=== PATIENT | male | born 1990 | race African-American/Black ===

== ENCOUNTER 2017-01-21 15:17 | Emergency (ER) | payer SELFPAY ==
[~2017-01-21] VITALS: Ht 180.3 cm; Wt 74.8 kg
[2017-01-21] MEDS ORDERED: ADDERAL20 MG ORAL (16:06)
[2017-01-21] MEDS ORDERED: QUETIAPINE FUM100 MG ORAL (16:06)
[2017-01-21] MEDS ORDERED: ZYPREXA10 MG ORAL (16:07)
--- NOTE | 2017-01-21 16:07 | Emergency Room Report ---
History of Present Illness General Chief Complaint: To Be Triaged Source: Patient Present Illness HPI 26 y/o male c/o med refill. States that he has appt with PCP [facility] on 01/27/17 and needs medication to last him to his appt. States he takes 20mg Adderral QD for ADHD, 10mg Zyprexa QHS for KAREY and then 100mg QD Seroquil for Bipolar. States he takes medication with good compliance w/o AE and with control of sxs. Denies SI, HI, AH or VH. Allergies: Coded Allergies: No Known Allergies (Unverified , 01/21/17) Patient History Past Medical History: see triage record Past Surgical History: none Pertinent Family History: none Reviewed Nursing Documentation: PMH: Agreed, PSxH: Agreed Review of Systems All Other Systems: negative except mentioned in HPI Physical Exam Sp02 EP Interpretation: reviewed, normal General Appearance: no apparent distress, alert, GCS 15, non-toxic Head: normocephalic, atraumatic Eyes: bilateral eye normal inspection ENT: no angioedema, normal voice Neck: full range of motion, supple/symm/no masses Respiratory: chest non-tender, lungs clear, normal breath sounds, speaking full sentences Musculoskeletal: gait/station normal Neurologic: alert, oriented x3, responsive, motor strength/tone normal, sensory intact, speech normal Psychiatric: judgement/insight normal, memory normal, mood/affect normal, no suicidal/homicidal ideation Skin: normal color, no rash, warm/dry, well hydrated Medical Decision Making PA Attestation Dr. Foss is my supervising physician with whom patient management has been discussed with. Diagnostic Impression: Primary Impression: Medication refill Additional Impressions: ADHD (attention deficit hyperactivity disorder) Qualified Codes: F90.1 - Attention-deficit hyperactivity disorder, predominantly hyperactive type Bipolar 1 disorder, mixed KAREY (generalized anxiety disorder) ER Course Pt. presents to the ED c/o medication refill. Ddx considered but are not limited to withdrawel, drug abuse, bipolar, schitzophrenia, depression, ADHD, KAREY Vital signs: are WNL, pt. is afebrile H&PE are most consistent with med refill for multiple psych conditions ORDERS: none required at this time, the diagnosis is clinical ED INTERVENTIONS: none required at this time. DISCHARGE: At this time pt. is stable for d/c to home. I checked cures report which shows no aberrant behaviors with last Rx for Adderall being December 02 2016. Advised I would give refill amount to next appointment with PCP. Will provide printed patient care instructions, and any necessary prescriptions. Care plan and follow up instructions have been discussed with the patient prior to discharge. Disposition: HOME, SELF-CARE Condition: Stable Scripts Olanzapine* (ZYPREXA*) 10 Mg Tablet 10 MG ORAL DAILY, #7 TAB 0 Refills Prov: YULIYATAMEEM P.A. 01/21/17 Dextroamphetamine/Amphetamine (Adderall 20 mg Tablet) 20 Mg Tablet 20 MG ORAL DAILY, #7 TAB Prov: SABRY,TAMEEM P.A. 01/21/17 Quetiapine Fumarate* (SEROQUEL*) 100 Mg Tablet 100 MG ORAL DAILY, #7 TAB Prov: SABRY,TAMEEM P.A. 01/21/17 YULIYATAMEEM P.A. Jan 21, 2017 16:07
[2017-01-21 16:17] VITALS: BP 123/67
== END 2017-01-21 16:17 | disposition home or self-care (01) ==
LOC: EMR 16:17
DX: F31.9 Bipolar disorder, unspecified (principal); F90.9 Attention-deficit hyperactivity disorder, unspecified type; F41.1 Generalized anxiety disorder; Z76.0 Encounter for issue of repeat prescription
CPT/HCPCS: 99284

== ENCOUNTER 2017-01-29 13:09 | Emergency (ER) | payer OTHER ==
[~2017-01-29] VITALS: Ht 177.8 cm; Wt 74.8 kg
[~2017-01-29 13:09] MED LIST: ADDERAL20 MG ORAL; QUETIAPINE FUM100 MG ORAL; ZYPREXA10 MG ORAL
[2017-01-29 13:52] VITALS: BP 105/67
--- NOTE | 2017-01-29 14:16 | Emergency Room Report ---
History of Present Illness General Chief Complaint: Pain Source: Patient Present Illness HPI 26 YO M hx of depression p/w R ankle pain and medication refill +R ankle pain, on lateral side, associated with mild swelling, oxxurred for the last 2 weeks. denies any recent trauma. can not recall if he twisted it or not. denies any fever or chills. he has still been able to ambulate and bear weight also here for refill for zyprexa and adderral, states he has been looking for a psychiatrist but "it has been a lot of hassle". denies any depressive symptoms at this time, no SI/HI. got a rx filled here at [facility] last week. denies fever chills nvd Allergies: Coded Allergies: No Known Allergies (Unverified , 01/21/17) Patient History Past Medical History: psych hx Past Surgical History: none Pertinent Family History: none Nursing Documentation-[facility] Past Medical History: No History, Except For History Of Psychiatric Problem: Yes - ADHD, BIPOLAR Review of Systems Musculoskeletal: Reports: joint pain All Other Systems: negative except mentioned in HPI Physical Exam Vital Signs Date Time Temp Pulse Resp B/P Pulse Ox O2 Delivery O2 Flow Rate FiO2 01/29/17 13:23 97.9 103 20 105/67 100 Room Air General Appearance: normal inspection, well appearing, no apparent distress, alert, GCS 15, non-toxic Head: normocephalic, atraumatic Eyes: bilateral eye EOMI, bilateral eye PERRL, bilateral eye normal inspection ENT: normal ENT inspection, normal pharynx, normal voice, moist mucus membranes Neck: normal inspection, full range of motion, supple, no bony tend Respiratory: normal inspection, lungs clear, normal breath sounds, no respiratory distress, no retraction, no wheezing, speaking full sentences, chest symmetrical Cardiovascular #1: normal inspection, regular rate, rhythm, no edema, normal capillary refill Gastrointestinal: normal inspection, non tender, soft, non-distended, no guarding Genitourinary: no CVA tenderness Musculoskeletal: normal inspection, back normal, other - mild swelling noted lateral R ankle, no 5th metatarsal tenderness, full ROM, able to ambulate and bear weight without difficulty. effusion has no warmth or overlying redness Neurologic: normal inspection, alert, oriented x3, responsive, motor strength/ tone normal, sensory intact, normal gait, speech normal Medical Decision Making Diagnostic Impression: Primary Impression: Ankle pain, right ER Course 26 yo M with R ankle pain x 2 weeks DDX: ankle sprain / fx ER course: XR reveals no acute fx RAKAN bandage placed on R ankle Continues to be nontoxic and ambulatory in ED Disposition: Pt is to be DC'ed home. Rx for motrin given. Rakan bandage placed on R ankle. Pt instructed to rest, ice, and take NSAIDS for pain. Instructed to follow up with an orthopedic doctor if any worsening/ persistent pain. medication refill: pt instructed to see his PMD/psychiatrist for refills Last Vital Signs Date Time Temp Pulse Resp B/P Pulse Ox O2 Delivery O2 Flow Rate FiO2 01/29/17 13:52 97.9 98 20 105/67 100 Room Air Disposition: HOME, SELF-CARE Condition: Improved Scripts Ibuprofen* (MOTRIN*) 600 Mg Tablet 600 MG ORAL Q8H Y for For Pain, #30 TAB 0 Refills Prov: Adrianne Barrera M.D. 01/29/17 Referrals: NOT CHOSEN XENIA/,REFERRING (PCP) Adrianne Barrera M.D. Jan 29, 2017 14:16
[2017-01-29] MEDS ORDERED: IBUPROFEN600 MG ORAL (14:20)
[2017-01-29 14:31] VITALS: BP 105/67
== END 2017-01-29 14:40 | disposition home or self-care (01) ==
LOC: EMR 13:43
DX: M25.571 Pain in right ankle and joints of right foot (principal); Z76.0 Encounter for issue of repeat prescription; F90.9 Attention-deficit hyperactivity disorder, unspecified type; F31.9 Bipolar disorder, unspecified
CPT/HCPCS: 29540; 99283

== ENCOUNTER 2017-10-30 13:23 | Emergency (ER) | payer SELFPAY ==
[~2017-10-30] VITALS: Ht 180.3 cm; Wt 70.8 kg
[~2017-10-30 13:23] MED LIST changes: +IBUPROFEN600 MG ORAL
[2017-10-30 14:01] VITALS: BP 102/67
[2017-10-30] MEDS ORDERED: ZYPREXA2.5 MG ORAL (14:28)
[2017-10-30 14:29] VITALS: BP 102/67
--- NOTE | 2017-10-30 14:30 | Emergency Room Report ---
History of Present Illness General Chief Complaint: Medication Refill Source: Patient Present Illness HPI 27-year-old male patient presents ER requesting medication refill. Patient requesting refill for Strattera, Zyprexa, lorazepam. patient reports that he takes 2.5 mg of Zyprexa and 10 mg of Zyprexa at separate times during the day. Reports he has tenderness milligrams of Zyprexa but is out of his 2.5 mg of Zyprexa.. Patient reports allergies to stay. Patient reports that his appointment with his new primary care provider on November 05. Patient reports that his prescription was given to him but it was filled out incorrectly and he was unable to fill it. Patient denies symptoms. Patient denies suicidal or homicidal ideation. Patient denies fever, chest pain shortness breath. Allergies: Coded Allergies: SHELLFISH DERIVED (Unverified Allergy, Unknown, 10/30/17) Uncoded Allergies: SHELLFISH (Allergy, Unknown, 10/30/17) Patient History Past Medical History: see triage record Reviewed Nursing Documentation: PMH: Agreed; PSxH: Agreed Nursing Documentation-PMH Past Medical History: No History, Except For History Of Psychiatric Problem: Yes - Anxiety, ADHD Review of Systems All Other Systems: negative except mentioned in HPI Physical Exam Vital Signs Date Time Temp Pulse Resp B/P (MAP) Pulse Ox O2 Delivery O2 Flow Rate FiO2 10/30/17 14:01 98.2 99 16 102/67 95 Room Air 98.2 Sp02 EP Interpretation: reviewed, normal General Appearance: well appearing, no apparent distress, alert, GCS 15, non- toxic Head: normocephalic, atraumatic Eyes: bilateral eye normal inspection, bilateral eye PERRL Neck: full range of motion Respiratory: lungs clear, normal breath sounds, no rhonchi, no respiratory distress, no accessory muscle use, no wheezing, speaking full sentences Cardiovascular #1: regular rate, rhythm, no edema Musculoskeletal: back normal, digits/nails normal, gait/station normal, normal range of motion, non-tender Neurologic: alert, oriented x3, responsive, motor strength/tone normal, sensory intact Psychiatric: mood/affect normal, no suicidal/homicidal ideation Skin: no rash Medical Decision Making PA Attestation Dr. Mendez is my supervising Physician whom patient management has been discussed with. Diagnostic Impression: Primary Impression: Encounter for medication refill ER Course Pt. presents to the ED requesting prescription refill. Multiple differentials were considered. Vital signs: are WNL, pt. is afebrile ORDERS: PE benign, lungs clear to auscultation. Consult with Dr. Mendez. Informed patient would not provide refill of medication for Lorazepam and Strattera. Informed patient can provide six-day supply of Zyprexa 2.5 mg until follow-up appointment with primary care provider. informed patient to contact mental health urgent care, provided with contact information for Mental health urgent care. Contact previous provider regarding prescription error, asked her to complete new prescription. Contact primary care provider for scheduled appointment on , follow-up at appointment, requesting medication Refill prior to appointment Do not believe patient is a harm to himself or others at this time, denies suicidal or homicidal ideation. Patient discharged and paperwork printed. Informed by nurse patient left prior to being provided with discharge paperwork. DISCHARGE: Rx provided for Zyprexa 2.5mg, #6. At this time pt is stable for d/c to home. Patient is resting comfortably, in no acute distress, nontoxic appearing, talking without difficulty. Patient to take medications as instructed Will provide with patient care instructions and any necessary prescriptions. Care plan and follow-up instructions provided. Patient instructed to follow-up with primary care provider in 3 - 5 days. Patient questions asked and answered. Patient reports understanding and agreement to treatment plan. ER precautions given. Patient instructed to return to ER immediately for any new or worsening of symptoms including but not limited to increasing SOB, persistent fever. - Please note that this Emergency Department Report was dictated using [employer] supervisor technology software, occasionally this can lead to erroneous entry secondary to interpretation by the dictation equipment. Last Vital Signs Date Time Temp Pulse Resp B/P (MAP) Pulse Ox O2 Delivery O2 Flow Rate FiO2 10/30/17 14:01 98.2 99 16 102/67 95 Room Air 98.2 Disposition: HOME, SELF-CARE Condition: Stable Scripts Olanzapine* (ZYPREXA*) 2.5 Mg Tablet 2.5 MG ORAL DAILY, #6 TAB 0 Refills Prov: Arun Land 10/30/17 Patient Instructions: Medicine Refill at the Emergency Department Additional Instructions: contact primary care provider, request that she completely correct prescription refill. Follow-up with mental health urgent care. Followup with primary care provider at scheduled appointment. Take medications as directed. Patient questions asked and answered. ER precautions given, patient instructed to return to ER immediately for any new or worsening of symptoms. Arun Land October 30, 2017 14:30
== END 2017-10-30 14:40 | disposition home or self-care (01) ==
LOC: EMR 14:28
DX: Z76.0 Encounter for issue of repeat prescription (principal); F41.9 Anxiety disorder, unspecified; Z91.013 Allergy to seafood
CPT/HCPCS: 99283

== ENCOUNTER 2017-11-26 06:43 | Emergency (ER) | payer MEDICAID ==
[~2017-11-26] VITALS: Ht 177.8 cm; Wt 72.6 kg
[~2017-11-26 06:43] MED LIST changes: +ZYPREXA2.5 MG ORAL
[2017-11-26] MEDS ORDERED: KLONOPIN0.5 MG ORAL (06:52)
[2017-11-26] MEDS ORDERED: LATUDA40 MG PO (06:52)
[2017-11-26 07:05] LABS: APPEARANCE,URINE CLEAR; BILIRUBIN, URINE NEGATIVE (NEGATIVE); GLUCOSE, URINE (UA) NEGATIVE (NEGATIVE); KETONES,URINE NEGATIVE (NEGATIVE); LEUKOCYTE ESTERASE ,URINE 1+ (NEGATIVE); NITRITE,URINE NEGATIVE (NEGATIVE); PH,URINE 7 (4.5-8.0); PROTEIN,URINE 1+ (NEGATIVE); UROBILINOGEN,URINE 8 MG/DL (0.0-1.0)
--- NOTE | 2017-11-26 07:26 | Emergency Room Report ---
History of Present Illness General Chief Complaint: General Complaint Source: Patient Present Illness HPI The patient states he has issues with drug use and addiction. He states that he uses marijuana and methamphetamine and other street drugs. He states he was kicked out of rehabilitation because he continues to use. He states he is out of his Klonopin and is requesting a refill. He has no other specific complaints. He admits that he has a problem that he needs to stop using drugs. He states that he has Zyprexa and had been on latuda also. He states he is not sure if he has been diagnosed with actual psychiatric disorder. He is considering that maybe he needs to be off psych medications in general. Has no other complaints. Allergies: Coded Allergies: SHELLFISH DERIVED (Unverified Allergy, Unknown, 10/30/17) Uncoded Allergies: SHELLFISH (Allergy, Unknown, 10/30/17) Patient History Past Medical History: none, psych hx, other - substance abuse Social History: Reports: smoking, alcohol use, drug use Reviewed Nursing Documentation: PMH: Agreed; PSxH: Agreed Nursing Documentation-PMH History Of Psychiatric Problem: Yes - ADHD, anxiety, PTSD Review of Systems All Other Systems: negative except mentioned in HPI Physical Exam Vital Signs Date Time Temp Pulse Resp B/P (MAP) Pulse Ox O2 Delivery O2 Flow Rate FiO2 11/26/17 06:49 98.8 136 14 113/64 96 Room Air 98.8 Sp02 EP Interpretation: reviewed, normal General Appearance: no apparent distress, alert, GCS 15, non-toxic, other - poor hygiene Head: normocephalic, other - abrasions on nose Eyes: bilateral eye normal inspection, bilateral eye PERRL ENT: hearing grossly normal, normal pharynx, no angioedema, normal voice Neck: full range of motion, supple/symm/no masses Respiratory: no respiratory distress, no retraction, no accessory muscle use, speaking full sentences Cardiovascular #1: tachycardia Rectal: deferred Musculoskeletal: back normal, gait/station normal, normal range of motion Neurologic: alert, oriented x3, responsive, motor strength/tone normal, sensory intact, speech normal Psychiatric: judgement/insight normal, memory normal, mood/affect normal, no suicidal/homicidal ideation Skin: normal color, no rash, warm/dry, well hydrated Medical Decision Making Diagnostic Impression: Primary Impression: Drug abuse and dependence ER Course This patient is rest requesting a Klonopin refill. I declined. I will not be refilling any type of controlled substance. The patient also does not appear anxious. I suspect this patient is seeking benzodiazepines. The patient admits to ongoing drug use. He was kicked out of rehabilitation program. I educated the patient that he is only person who can help himself. I did give the patient the [facility] information so that if he decides he wants to truly come off drugs that he could get assistance with this program. Overall, my evaluation of this patient is benign and reassuring. The patient does have a sinus tachycardia which is most likely related to his drug use. The patient declined a blood draw. He did agree to a urine drug screen which was positive for polysubstances. The patient was dictated extensively that he needed to stop using street drugs. Before I can give this patient has discharge paperwork and resources he eloped stating that to the RN that he knew what to do. Laboratory Tests Test 11/26/17 06:55 Urine Color Pending Urine Appearance Pending Urine pH Pending Urine Specific [place] Pending Urine Protein Pending Urine Glucose (UA) Pending Urine Ketones Pending Urine Occult Blood Pending Urine Nitrite Pending Urine Bilirubin Pending Urine Urobilinogen Pending Urine Leukocyte Esterase Pending Urine Opiates Screen Negative (NEGATIVE) Urine Barbiturates Screen Positive (NEGATIVE) H Phencyclidine (PCP) Screen Negative (NEGATIVE) Urine Amphetamines Screen Positive (NEGATIVE) H Urine Benzodiazepines Screen Positive (NEGATIVE) H Urine Cocaine Screen Negative (NEGATIVE) Urine Marijuana (THC) Screen Positive (NEGATIVE) H EKG Diagnostic Results Rate: tachycardiac Rhythm: other - S.tachycardia ST Segments: no acute changes Rhythm Strip Diag. Results EP Interpretation: yes Rate: 110's Rhythm: no PVC's, no ectopy, other - S.tachycardia Last Vital Signs Date Time Temp Pulse Resp B/P (MAP) Pulse Ox O2 Delivery O2 Flow Rate FiO2 11/26/17 06:49 98.8 136 14 113/64 96 Room Air 98.8 Disposition: ELOPED Condition: Stable Referrals: NOT CHOSEN [facility]/,REFERRING (PCP) LATA GLYNN D.O. Nov 26, 2017 07:26
[2017-11-26 07:27] LABS: COLOR,URINE YELLOW
[2017-11-26 07:54] VITALS: BP 115/62
--- NOTE | 2017-11-28 19:45 | Cardiology Report ---
APPROVED REPORT EKG Measurement Heart [id number] Sinus tachycardia Otherwise normal ECG
== END 2017-11-26 07:56 | disposition left against medical advice (07) ==
LOC: EMR 07:03
DX: F12.20 Cannabis dependence, uncomplicated (principal); F15.20 Other stimulant dependence, uncomplicated; Z91.013 Allergy to seafood; F90.9 Attention-deficit hyperactivity disorder, unspecified type
CPT/HCPCS: 80307; 81003; 93005; 99283

== ENCOUNTER 2020-03-19 11:45 | Emergency (ER) | payer MEDICAID, OTHER ==
[~2020-03-19] VITALS: Ht 180.3 cm; Wt 72.6 kg
[2020-03-19 11:45] VITALS: BP 140/80
[~2020-03-19 11:45] MED LIST changes: +KLONOPIN0.5 MG ORAL; +LATUDA40 MG PO
--- NOTE | 2020-03-19 11:45 | NUR ---
ED Nurse Note: pt BIBA RA [facility] from [facility] due to SI, upon arrival pt was agitated screaming, "I dont wan't to be here," and "I need ativan" pt was throwing items around ED. Security called to station. When speaking with pt in the room he stated "Im having some weird thoughts," pt reports thoughts of hurting himself with a jukebox coin collector, and admits to hearing voices telling him to hurt himself. Pt continues to be anxious and agitated. Breathing even and unlabored, on RA.
--- NOTE | 2020-03-19 11:57 | Emergency Room Report ---
History of Present Illness General Chief Complaint: Behavioral Complaint Source: Patient Present Illness HPI Disclaimer: Please note that this report is being documented using [employer] technology. This can lead to erroneous entry secondary to incorrect interpretation by the dictating instrument. HPI: 29-year-old male with depression, anxiety presents for auditory hallucinations. [facility]. Not on medical hold. Patient states he is having intrusive thoughts hearing voices telling him to harm himself and others. He states he has not yet attempted to harm himself or anyone else. States he does not want to hurt himself or anyone else. Has no plan to harm self or others. Denies drug or alcohol use. States he takes Lexapro, Zyprexa and Ativan. Last dose of Ativan was yesterday. States he feels he may be addicted to Ativan. States he follows with 2 psychiatrists but has not been able to see them recently. On arrival patient was agitated, flipping over tables, wheelchairs acting aggressively towards staff and EMS. He was easily redirected and calm during my evaluation. 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 EOMI. Cardiovascular: RRR. S1 and S2 normal. No murmur appreciated Resp: Normal work of breathing. No cough, wheezing or crackles appreciated Abdomen: Abdomen is soft, nondistended. Nontender Skin: Intact. No abrasions, laceration or rash over the exposed skin MSK: Normal tone and bulk. Moving all extremities. No obvious deformity. Neuro: Awake and alert. Mentating appropriately. Does not appear to be responding to internal stimuli. Medical Decision Making Diagnostic Impression: Primary Impression: Anxiety Additional Impression: Eloped from emergency department ER Course 29-year-old male presents for evaluation of auditory hallucinations and anxiety. Not on medical hold. He is requesting his Ativan and home medications. Patient was combative and aggressive on arrival but was able to calm down. Will obtain labs for medical clearance prior to psychiatric evaluation. 1400: Alerted by nursing staff that the patient's labs had hemolyzed and he would require a redraw. Patient was refusing. I went to speak with him and found him calm and cooperative. He stated the Ativan and Haldol that he was given helped and he was no longer hearing auditory hallucinations. He was agreeable to blood draw. After I left the patient's room to order his home medications of Lexapro and Zyprexa the patient ran out of the emergency department. Staff was unable to pursue. Laboratory Tests Test 03/19/20 11:57 White Blood Count 11.7 K/UL (4.8-10.8) H Red Blood Count 4.40 M/UL (4.70-6.10) L Hemoglobin 14.8 G/DL (14.2-18.0) Hematocrit 41.6 % (42.0-52.0) L Mean Corpuscular Volume 95 FL (80-99) Mean Corpuscular Hemoglobin 33.6 PG (27.0-31.0) H Mean Corpuscular Hemoglobin Concent 35.5 G/DL (32.0-36.0) Red Cell Distribution Width 11.8 % (11.6-14.8) Platelet Count 224 K/UL (150-450) Mean Platelet Volume 6.8 FL (6.5-10.1) Neutrophils (%) (Auto) 73.5 % (45.0-75.0) Lymphocytes (%) (Auto) 12.7 % (20.0-45.0) L Monocytes (%) (Auto) 10.3 % (1.0-10.0) H Eosinophils (%) (Auto) 0.0 % (0.0-3.0) Basophils (%) (Auto) 3.4 % (0.0-2.0) H Microbiology Date/Time Source Procedure Growth Status 03/19/20 11:57 Nasopharynx SARS-CoV-2 RdRp Gene Assay - Final Complete Last Vital Signs Date Time Temp Pulse Resp B/P (MAP) Pulse Ox O2 Delivery O2 Flow Rate FiO2 03/19/20 11:38 98.1 78 16 142/86 (104) 98 Room Air Disposition: ELOPED Condition: Stable Boubacar Ahumada MD Mar 19, 2020 11:57
[2020-03-19] MEDS ORDERED: LORazepam Inj 2mg/ml 1ml IM ONE (12:00)
[2020-03-19] MEDS ORDERED: Haloperidol 5mg/ml Inj IM ONE (12:00)
--- NOTE | 2020-03-19 12:14 | NUR ---
ED Nurse Note: blood and COVID sent to lab.
--- NOTE | 2020-03-19 12:20 | NUR ---
ED Nurse Note: all due medication given at this time, pt tolerated well. pt changed in to hospital gown. when asked if pt has any plan of SI, pt states he does not. Currently calm and coorporative with care at this time. will continue to monitor.
[2020-03-19 12:38] LABS: BASOPHILS % (AUTO) 3.4 % (0.0-2.0); HEMATOCRIT 41.6 % (42.0-52.0); HEMOGLOBIN 14.8 G/DL (14.2-18.0); LYMPHOCYTES % (AUTO) 12.7 % (20.0-45.0); MEAN CORPUSCULAR VOLUME 95 FL (80-99); MONOCYTES % (AUTO) 10.3 % (1.0-10.0); NEUTROPHILS % (AUTO) 73.5 % (45.0-75.0); PLATELET COUNT 224 K/UL (150-450); RED CELL DISTRIBUTION WIDTH 11.8 % (11.6-14.8); WHITE BLOOD COUNT 11.7 K/UL (4.8-10.8)
--- NOTE | 2020-03-19 13:17 | NUR ---
ED Nurse Note: Report given to PARTH Howard. Endorsed plan of care.
[2020-03-19 13:50] VITALS: BP 134/78
--- NOTE | 2020-03-19 14:02 | NUR ---
ED Nurse Note: Patient refusing medications, states he wants to leave. ERMD notified.
--- NOTE | 2020-03-19 14:05 | NUR ---
ED Nurse Note: Patient refused all care, ERMD spoke to patient regarding risks and benefits, patient uncooperative. Left with all belongings, refused to cooperate.
[2020-03-19 14:10] VITALS: BP 134/78
== END 2020-03-19 14:10 | disposition left against medical advice (07) ==
LOC: EDBD 11:45 → EMR 12:27
DX: F41.9 Anxiety disorder, unspecified (principal); F32.9 Major depressive disorder, single episode, unspecified
CPT/HCPCS: 36415; 85025; 96372; J1630; U0002; Z7502; 99283